=== PATIENT | female | born 1990 | race Caucasian/White ===

== ENCOUNTER 2022-12-14 08:36 | Outpatient (CLI) | payer OTHER ==
[2022-12-14 09:13] VITALS: BP 133/72
[2022-12-14] MEDS ORDERED: ASPI-999 PO (09:25)
[2022-12-14] MEDS ORDERED: PNV-9 PO (09:25)
[2022-12-14] MEDS ORDERED: DOCU-143 PO (09:25)
[2022-12-14] MEDS ORDERED: NF-VITD400 PO (09:25)
[2022-12-14] MEDS ORDERED: LABE1PLA IV (09:25)
--- NOTE | 2022-12-15 08:45 | Physician Query-Final Dx ---
Clinic Account Progress/Dx Physician Query: Please give diagnosis Please include # weeks gestation Date of Service December 14, 2022 at 08:36 ,AugDecember 15, 2022 08:45
== END 2022-12-14 09:17 | disposition home or self-care (01) ==
LOC: WSo 08:36 → LDRP 08:36 → WSo 09:17
PROVIDERS: ATTEND Obstetrics & Gynecology
DX: O36.8130 Decreased fetal movements, third trimester, not applicable or unspecified (principal); Z3A.32 32 weeks gestation of pregnancy